=== PATIENT | female | born 1975 | race Caucasian/White ===

== ENCOUNTER 2017-02-01 08:55 | Emergency (ER) | payer OTHER ==
[~2017-02-01] VITALS: Ht 170.1 cm; Wt 87.5 kg
[~2017-02-01 08:55] MED LIST: AMOXICILLIN500 M2 PO; AMOXICILLIN500 MG PO; ANTIVERT/2525 MG PO; ASPIRIN FOR CHI81 MG PO; ATIVAN1 MG PO; Anusol Hc,Anuco25 MG PO; B COMPLEX1 EACH PO; CINNAMON ALPHA1 EACH PO; CIPRO500 MG PO; CIPROFLOXACIN500 MG PO; CLONAZEPAM0.5 M2 PO; CYCLOBENZAPRINE10 MG PO; DELTASONE20 MG PO; FIORICET 50-301 EACH PO; FLEXERIL10 MG PO; GEODON60 MG PO; GEODON80 MG PO; HYDROCODONE BIT1 T11 PO; IBU800 MG PO; IMITREX100 MG PO; KEFLEX500 M1 PO; KENALOG 0.1%80 GM T; KLONOPIN1 MG PO; LASIX20 MG PO; LATU120T PO; LEVAQUIN750 MG PO; LEVOFLOXACIN500 MG PO; LITHIUM CARB300 MG PO; MACROBID100 M1 PO; MEDROL DOSEPAK4 MG PO; NATURE'S BLEND500 M2 PO; OFLOXACIN PO; PERCOCET 325 MG1 TA2 PO; POTASSIUM20 MEQ PO; PREDNISONE20 M1 PO; PROAIR HFA0.09 MG/AC INH; PROPRANOLOL10 MG PO; PYRIDIUM100 MG PO; PYRIDIUM200 MG PO; SEROQUEL200 MG PO; SEROQUEL25 MG PO; TRAMADOL HCL50 MG PO; VICODIN 5-3001 EACH PO; VISTARIL50 MG PO; VITAMIN B 12 PO; VITAMIN B 6 PO; VOLTAREN50 M1 PO; WELLBUTRIN SR150 MG PO; XANAX1 MG PO; ZYRTEC10 MG PO; [UNRECOGNIZED DRUG - OTHER] PO
[2017-02-01 08:59] VITALS: BP 113/52
[2017-02-01 09:19] LABS: BILIRUBIN NEGATIVE (NEGATIVE); BLOOD 3+ (NEGATIVE); CLARITY CLOUDY (CLEAR); COLOR YELLOW (YELLOW); GLUCOSE NEGATIVE (NEGATIVE); KETONE NEGATIVE (NEGATIVE); LEUKO ESTERASE 2+ (NEGATIVE); NITRITE NEGATIVE (NEGATIVE); PH 5.5 (5.0-9.0); PROTEIN 1+ (NEGATIVE); SPECIFIC GRAVITY >= 1.030 (1.005-1.030); UROBILINOGEN 0.2 E.U./dl (0.2-1.0)
[2017-02-01 09:24] LABS: BACTERIA TRACE; RBC TNTC rbc/hpf (0-2)
[2017-02-01 09:25] LABS: URINE REFLEX COMMENT YES (NO)
[2017-02-01] MEDS ORDERED: DIFLUCAN150 MG PO (09:31)
[2017-02-01] MEDS ORDERED: PYRIDIUM200 M1 PO (09:31)
[2017-02-01] MEDS ORDERED: LEVOFLOXACIN500 MG PO (09:31)
== END 2017-02-01 09:54 | disposition home or self-care (01) ==
LOC: ED 08:55
PROVIDERS: Emergency Medicine
DX: N39.0 Urinary tract infection, site not specified (principal); F17.200 Nicotine dependence, unspecified, uncomplicated; G43.909 Migraine, unspecified, not intractable, without status migrainosus; Z98.51 Tubal ligation status; Z98.890 Other specified postprocedural states; Z79.899 Other long term (current) drug therapy; Z88.6 Allergy status to analgesic agent; Z88.2 Allergy status to sulfonamides

== ENCOUNTER 2017-12-14 12:11 | Emergency (ER) | payer OTHER ==
[~2017-12-14] VITALS: Wt 48.1 kg
[~2017-12-14 12:11] MED LIST changes: +DIFLUCAN150 MG PO; +PYRIDIUM200 M1 PO
[2017-12-14 12:26] VITALS: BP 118/60
[2017-12-14] MEDS ORDERED: Tobrex Ophth S2.5 ML OPH (12:46)
== END 2017-12-14 13:40 | disposition home or self-care (01) ==
LOC: ED 12:11
DX: H10.89 Other conjunctivitis (principal); B96.89 Other specified bacterial agents as the cause of diseases classified elsewhere; Z98.890 Other specified postprocedural states; Z79.899 Other long term (current) drug therapy; Z88.6 Allergy status to analgesic agent; Z88.2 Allergy status to sulfonamides

== ENCOUNTER 2018-08-20 23:38 | Emergency (ER) | payer OTHER ==
[~2018-08-20] VITALS: Wt 84.4 kg
--- NOTE | ~2018-08-20 | EKG ---
[place], [place] ELECTROCARDIOGRAM REPORT NAME: SINA MANDUJANO UNIT #: [id number] ROOM: DOCTOR: EPIPHANY DRAFT REPORT BIRTHDATE: [birth year] [facility] Test Date: 2018-08-21 Test Time: 00:03:37 Pat Name: SINA MANDUJANO Department: Room: Gender: [employer]: : 1975 Requested By: MAIA WALTON Order Number: [id number] Reading MD: Measurements Intervals [place] Rate: 106 P: 90 [place]: 175 QRS: 69 QRSD: 86 T: 47 QT: 323 QTc: 429 Interpretive Statements Sinus tachycardia Right atrial enlargement Consider right ventricular hypertrophy CM:EKGRPT:ELECTROCARDIOGRAM REPORT 0003 05 MAIA JANE DRAFT REPORT MAIA WALTON DO
[~2018-08-20 23:38] MED LIST changes: +AMOXICILLIN500 M3 PO; +BENZONATATE100 M1 PO; +CIPRODEX 0.3%-7.5 ML OT; +DOXYCYCLINE100 M3 PO; +FLORASTOR250 MG PO; +FLUTICASONE P15.8 ML NS; +MONTELUKAST SOD10 MG PO; +PROAIR HFA8.5 GM INH; +Tobrex Ophth S2.5 ML OPH; +VITAMIN D5000 UNI1 PO; +Zofran4 MG SL
[2018-08-21 00:05] LABS: HEMATOCRIT 47.3 % (37.0-47.0); HEMOGLOBIN 15.9 g/dl (12.0-16.0); MEAN CELL VOLUME 92.7 fl (81.0-99.0); MEAN CORPUSCULAR HGB 31.2 pg (27.0-31.0); MEAN CORPUSCULAR HGB CONC 33.6 g/dl (33.0-37.0); MEAN PLATELET VOLUME 10.2 fl (9.6-12.3); PLATELET COUNT AUTOMATED 326 10*3/uL (130-400); RED CELL DISTRI WIDTH 12.6 % (0-14.5); WHITE BLOOD COUNT 24.9 10*3/uL (4.8-10.8)
[2018-08-21 00:19] LABS: INTERNATIONAL NORM RATIO 0.9 (2.0-3.5)
[2018-08-21 00:23] LABS: ALKALINE PHOSPHATASE 90 U/L (45-117); BUN 16 mg/dl (7-24); CHLORIDE 106 mmol/L (98-107); CREATININE 0.79 mg/dL (0.55-1.02); LIPASE 111 U/L (73-393); PLATELET SUFFICIENCY NORMAL (NORMAL); POTASSIUM 4.3 mmol/L (3.5-5.1); SGOT/AST 18 IU/L (3-35); SGPT/ALT 28 U/L (12-78); SODIUM 135 mmol/L (136-145); TOTAL CELLS COUNTED 100 #CELLS; TOTAL PROTEIN 7.9 gm/dL (6.4-8.2)
[2018-08-21 00:27] LABS: TROPONIN I < 0.015 ng/ml (<0.045)
[2018-08-21 00:43] LABS: BILIRUBIN NEGATIVE (NEGATIVE); BLOOD NEGATIVE (NEGATIVE); CLARITY SL CLOUDY (CLEAR); COLOR YELLOW (YELLOW); GLUCOSE NEGATIVE (NEGATIVE); KETONE NEGATIVE (NEGATIVE); LEUKO ESTERASE NEGATIVE (NEGATIVE); NITRITE NEGATIVE (NEGATIVE); SPECIFIC GRAVITY 1.025 (1.005-1.030); UROBILINOGEN 0.2 E.U./dl (0.2-1.0)
[2018-08-21 00:50] LABS: BACTERIA 1+; EPITHELIAL CELLS 20-25
[2018-08-21 00:51] LABS: MUCOUS 1+
[2018-08-21 01:23] VITALS: BP 118/66
[2018-08-21] MEDS ORDERED: KETOROLAC10 MG PO (04:01)
== END 2018-08-21 04:32 | disposition home or self-care (01) ==
LOC: ED 23:38
PROVIDERS: Student in an Organized Health Care Education/Training Program
DX: K59.00 Constipation, unspecified (principal); R10.84 Generalized abdominal pain; K21.9 Gastro-esophageal reflux disease without esophagitis; G43.909 Migraine, unspecified, not intractable, without status migrainosus; E66.3 Overweight; F17.200 Nicotine dependence, unspecified, uncomplicated; Z98.51 Tubal ligation status; Z88.6 Allergy status to analgesic agent; Z88.2 Allergy status to sulfonamides; Z79.899 Other long term (current) drug therapy; Z68.25 Body mass index [BMI] 25.0-25.9, adult

== ENCOUNTER 2020-12-05 01:01 | Emergency (ER) | payer OTHER ==
[~2020-12-05] VITALS: Ht 170.1 cm; Wt 97.5 kg
[~2020-12-05 01:01] MED LIST changes: +CYCLOBENZAPRINE5 M3 PO; +KETOROLAC10 MG PO; +NORCO 5-325 TA1 EACH PO
[2020-12-05 01:20] VITALS: BP 115/85
[2020-12-05] MEDS ORDERED: NITROFURANTOIN100 M9 PO (02:04)
[2020-12-05] MEDS ORDERED: BUSPAR5 MG PO (02:04)
[2020-12-05] MEDS ORDERED: SUMATRIPTAN SUC50 M1 PO (02:05)
[2020-12-05] MEDS ORDERED: PHENAZOPYRIDIN200 M1 PO (02:05)
[2020-12-05] MEDS ORDERED: ACYCLOVIR400 MG PO (02:05)
[2020-12-05 02:47] LABS: BASO # 0.1 10*3/uL (0.0-0.1); BASO % 0.6 % (0.0-1.0); EOS # 0.7 10*3/uL (0.0-0.4); EOS % 4.2 % (1.0-4.0); LYMPH # 4.4 10*3/uL (1.3-4.4); MEAN CELL VOLUME 91.3 fl (81.0-99.0); MEAN CORPUSCULAR HGB 30.1 pg (27.0-31.0); MONO % 6.1 % (3.0-9.0); NEUT % 61.9 % (47.0-73.0); PLATELET COUNT AUTOMATED 302 10*3/uL (130-400); RED BLOOD COUNT 4.82 10*6/uL (4.10-5.10); RED CELL DISTRI WIDTH 12.9 % (0-14.5); WHITE BLOOD COUNT 16.3 10*3/uL (4.8-10.8)
[2020-12-05 02:57] LABS: INTERNATIONAL NORM RATIO 0.9 (2.0-3.5)
[2020-12-05 03:01] LABS: ALBUMIN 3.5 gm/dl (3.1-4.5); ALKALINE PHOSPHATASE 108 U/L (45-117); BUN 9 mg/dl (7-24); CHLORIDE 112 mmol/L (98-107); CREATININE 0.76 mg/dL (0.55-1.02); POTASSIUM 3.8 mmol/L (3.5-5.1); SGOT/AST 13 IU/L (3-35); SGPT/ALT 20 U/L (12-78); SODIUM 141 mmol/L (136-145); TOTAL PROTEIN 7.2 gm/dL (6.4-8.2)
== END 2020-12-05 05:25 | disposition home or self-care (01) ==
LOC: ED 01:01
PROVIDERS: Emergency Medicine
DX: I80.8 Phlebitis and thrombophlebitis of other sites (principal); K21.9 Gastro-esophageal reflux disease without esophagitis; F17.200 Nicotine dependence, unspecified, uncomplicated; Z98.51 Tubal ligation status; Z79.899 Other long term (current) drug therapy; Z88.6 Allergy status to analgesic agent; Z88.2 Allergy status to sulfonamides